=== PATIENT | female | born 1950 | race Caucasian/White ===

== ENCOUNTER → 2019-04-25 | Outpatient (CLI) | payer MEDICARE, OTHER, MEDICAID ==
[~2019-04-25] MED LIST: FENTANYL PF 100 MCG/2ML ONE; FLUMAZENIL 0.1 MG/1 ML, 5ML ONE; MIDAZOLAM 1 MG/ML, 5ML ONE; NALOXONE 1 MG/ML, 2ML ONE
== END | disposition home or self-care (01) ==
LOC: RAD 09:21
PROVIDERS: ATTEND Registered Nurse
DX: M47.26 Other spondylosis with radiculopathy, lumbar region (principal); M47.815 Spondylosis without myelopathy or radiculopathy, thoracolumbar region; M47.817 Spondylosis without myelopathy or radiculopathy, lumbosacral region; M47.812 Spondylosis without myelopathy or radiculopathy, cervical region; M47.813 Spondylosis without myelopathy or radiculopathy, cervicothoracic region
CPT/HCPCS: 72141; 72148; 99156; 99157; J2250; J3010; J2310

== ENCOUNTER → 2019-04-25 | Outpatient (CLI) | payer MEDICARE, OTHER, MEDICAID ==
[2019-04-25 13:06] LABS: BASOPHILS # (AUTO) 0.03 x10^3/uL (0-0.1); BASOPHILS % (AUTO) 0 % (0-1); EOSINOPHILS % (AUTO) 2 % (1-7); LYMPHOCYTES # (AUTO) 2.31 x10^3/uL (1-3.4); LYMPHOCYTES % (AUTO) 29 % (22-44); MD NO; MEAN CORPUSCULAR HEMOGLOBIN 31.1 pg (27.0-34.8); MEAN CORPUSCULAR HGB CONC 33.2 g/dL (32.4-35.8); MEAN CORPUSCULAR VOLUME 93.7 fL (80-100); MONOCYTES # (AUTO) 0.41 x10^3/uL (0.2-0.8); MONOCYTES % (AUTO) 5 % (2-9); NEUTROPHILS # (AUTO) 5.13 x10^3/uL (1.8-6.8); NEUTROPHILS % (AUTO) 64 % (42-75); PLATELET COUNT 192 x10^3/uL (130-400); RED BLOOD COUNT 5.62 x10^6/uL (3.82-5.3); RED CELL DISTRIBUTION WIDTH 15.3 % (9.6-15.2)
[2019-04-25 13:37] LABS: CHLORIDE 107 mmol/L (98-107)
[2019-04-25 13:43] LABS: ALANINE AMINOTRANSFERASE 25 U/L (12-78); ALKALINE PHOSPHATASE 73 U/L (45-117); ANION GAP 7 mmol/L (5-15); BILIRUBIN,TOTAL 0.8 mg/dL (0.2-1.0); CALCIUM 9.2 mg/dL (8.5-10.1); CHOL/HDL RATIO 3.4; CHOLESTEROL, TOTAL 152 mg/dL (140-239); CREATININE 0.94 mg/dL (0.55-1.02); FREE T4 (FREE THYROXINE) 1.18 ng/dL (0.76-1.46); HDL CHOL % 30 % (28-40); HDL CHOLESTEROL (DIRECT) 45 mg/dL (40-60); LDL CHOLESTEROL,CALCULATED 75 mg/dL (54-169); LDL/HDL RATIO 1.7 (0.5-3.0); T4 (THYROXINE) 11.3 mcg/dL (4.8-13.9); TRIGLYCERIDES 161 mg/dL (50-200); VLDL CHOLESTEROL 32 mg/dL (0-25)
== END | disposition home or self-care (01) ==
LOC: CFH 07:43
PROVIDERS: ATTEND Nurse Practitioner Family
DX: Z12.31 Encounter for screening mammogram for malignant neoplasm of breast (principal); M47.22 Other spondylosis with radiculopathy, cervical region; M50.10 Cervical disc disorder with radiculopathy, unspecified cervical region; M51.16 Intervertebral disc disorders with radiculopathy, lumbar region; E78.5 Hyperlipidemia, unspecified; F41.9 Anxiety disorder, unspecified; G62.9 Polyneuropathy, unspecified; G89.4 Chronic pain syndrome; L60.2 Onychogryphosis; R21 Rash and other nonspecific skin eruption; E11.42 Type 2 diabetes mellitus with diabetic polyneuropathy
CPT/HCPCS: 36415; 72040; 72110; 77063; 77067; 77080; 80053; 80061; 83036; 84436; 84439; 84443; 84481; 85025

== ENCOUNTER 2020-03-18 15:22 | Emergency (ER) | payer MEDICARE, OTHER, MEDICAID ==
[~2020-03-18] VITALS: Ht 170.2 cm; Wt 121.2 kg
--- NOTE | 2020-03-18 15:49 | NUR ---
PT IS A 69F COMPLAINING OF BILATERAL SWELLING OF BOTH LEGS RIGHT ABOVE THE KNEES THAT STARTED MONDAY. SHE DENIES ANY CP OR SOB. THIS HAPPENED BEFORE BUT WENT AWAY QUICKLY. CONTINUOUS SPO2, CYCLING VITALS AND CALL LIGHT WITHIN REACH. WARM BLANKET PROVIDED. PROVIDER AT BEDSIDE FOR POC.
[2020-03-18] MEDS ORDERED: METF500T17 PO (15:54)
[2020-03-18] MEDS ORDERED: FURO-93 PO (15:54)
[2020-03-18 16:32] LABS: BASOPHILS % (AUTO) 1 % (0-1); EOSINOPHILS % (AUTO) 5 % (1-7); LYMPHOCYTES % (AUTO) 33 % (22-44); MEAN CORPUSCULAR HEMOGLOBIN 29.3 pg (27.0-34.8); MEAN CORPUSCULAR HGB CONC 33.2 g/dL (32.4-35.8); MEAN PLATELET VOLUME 8.5 fL (7.4-10.4); MONOCYTES % (AUTO) 13 % (2-9); NEUTROPHILS % (AUTO) 49 % (42-75); PLATELET COUNT 198 x10^3/uL (130-400); RED BLOOD COUNT 4.72 x10^6/uL (3.82-5.3); RED CELL DISTRIBUTION WIDTH 13.9 % (9.6-15.2)
[2020-03-18 16:40] LABS: MD NO
[2020-03-18] MEDS ORDERED: DULO60CA7 PO (16:40)
[2020-03-18] MEDS ORDERED: PREG300C PO (16:40)
[2020-03-18] MEDS ORDERED: QUET300T5 PO (16:41)
[2020-03-18] MEDS ORDERED: SIMV10TA18 PO (16:41)
[2020-03-18] MEDS ORDERED: METH750T87 PO (16:42)
[2020-03-18] MEDS ORDERED: OXYC-307 PO (16:42)
[2020-03-18 16:43] LABS: ALANINE AMINOTRANSFERASE 40 U/L (12-78); ALBUMIN 3.8 g/dL (3.4-5.0); ANION GAP 9 mmol/L (5-15); CALCIUM 8.8 mg/dL (8.5-10.1); CHLORIDE 108 mmol/L (98-107)
--- NOTE | 2020-03-18 16:43 | NUR ---
PT RESTING COMFORTABLY WATCHING TV. 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
[2020-03-18 16:48] LABS: ALKALINE PHOSPHATASE 55 U/L (45-117); BILIRUBIN,TOTAL 0.5 mg/dL (0.2-1.0); TROPONIN I < 0.015 ng/mL (0.000-0.045)
[2020-03-18 17:52] VITALS: BP 146/62
== END 2020-03-18 17:59 | disposition home or self-care (01) ==
LOC: ED 17:30
DX: I87.2 Venous insufficiency (chronic) (peripheral) (principal); R94.31 Abnormal electrocardiogram [ECG] [EKG]; R07.89 Other chest pain; Z87.891 Personal history of nicotine dependence
CPT/HCPCS: 36415; 71045; 80053; 83880; 84484; 85025; 93005; 99285

== ENCOUNTER 2020-06-03 09:17 | Outpatient (CLI) | payer MEDICARE, MEDICAID, OTHER ==
[~2020-06-03 09:17] MED LIST changes: +DULO60CA7 PO; -FENTANYL PF 100 MCG/2ML ONE; -FLUMAZENIL 0.1 MG/1 ML, 5ML ONE; +FURO-93 PO; +METF500T17 PO; +METH750T87 PO; -MIDAZOLAM 1 MG/ML, 5ML ONE; -NALOXONE 1 MG/ML, 2ML ONE; +OXYC-380 PO; +PREG300C PO; +QUET300T5 PO; +SIMV10TA18 PO
[2020-06-03 09:57] LABS: ANION GAP 4 mmol/L (5-15); CALCIUM 9.2 mg/dL (8.5-10.1); CHLORIDE 107 mmol/L (98-107); CREATININE 0.64 mg/dL (0.55-1.02)
== END 2020-06-03 23:59 | disposition home or self-care (01) ==
LOC: RAD 09:17
PROVIDERS: ATTEND Nurse Practitioner Family
DX: R60.0 Localized edema (principal); E11.9 Type 2 diabetes mellitus without complications; E78.49 Other hyperlipidemia; G47.00 Insomnia, unspecified; K59.03 Drug induced constipation; T40.2X5A Adverse effect of other opioids, initial encounter; G47.09 Other insomnia
CPT/HCPCS: 36415; 76770; 80048; 82043; 82570; 83036; 93970